=== PATIENT | male | born 1945 | race Caucasian/White ===

== ENCOUNTER 2016-08-20 12:18 | Emergency (ER) | payer OTHER ==
[~2016-08-20] VITALS: Ht 193 cm; Wt 97.5 kg
[2016-08-20 12:30] VITALS: BP 116/45
[2016-08-20] MEDS ORDERED: HYDROmorphone HCL 2 MG/ML VL IM ONE (13:00)
[2016-08-20] MEDS ORDERED: ONDANSETRON HCL 4 MG/2 ML VIAL IM ONE (13:00)
[2016-08-20] MEDS ORDERED: METHOCARBAMOL 500 MG TAB PO ONE (13:00)
== END 2016-08-20 14:39 | disposition home or self-care (01) ==
LOC: ER 12:31
DX: M25.552 Pain in left hip (principal); G89.29 Other chronic pain; E11.9 Type 2 diabetes mellitus without complications; G40.909 Epilepsy, unspecified, not intractable, without status epilepticus; G70.00 Myasthenia gravis without (acute) exacerbation; Z85.51 Personal history of malignant neoplasm of bladder; W01.0XXA Fall on same level from slipping, tripping and stumbling without subsequent striking against object, initial encounter; Z88.0 Allergy status to penicillin; Y93.E1 Activity, personal bathing and showering; Y99.8 Other external cause status; Y92.091 Bathroom in other non-institutional residence as the place of occurrence of the external cause
CPT/HCPCS: 74176; 96372; 99284; J1170; J2405

== ENCOUNTER 2018-03-01 11:00 | Emergency (ER) | payer OTHER ==
[~2018-03-01] VITALS: Ht 193 cm; Wt 97.5 kg
[2018-03-01 11:31] VITALS: BP 128/78
[2018-03-01] MEDS ORDERED: HYDROcodone-ACET 7.5/325MG TAB PO ONE (11:45)
== END 2018-03-01 13:19 | disposition home or self-care (01) ==
LOC: ER 11:00
DX: M16.11 Unilateral primary osteoarthritis, right hip (principal); E11.9 Type 2 diabetes mellitus without complications; Z96.642 Presence of left artificial hip joint; Z90.49 Acquired absence of other specified parts of digestive tract; Z88.0 Allergy status to penicillin
CPT/HCPCS: 73502

== ENCOUNTER 2019-04-02 05:39 | Emergency (ER) | payer OTHER ==
[~2019-04-02] VITALS: Ht 182.9 cm; Wt 90.7 kg
[~2019-04-02 05:39] MED LIST: ESCI20TA51 PO; LAM100T PO; MIRT30TA PO; PYRI30TA PO
[2019-04-02] MEDS ORDERED: SODIUM CHLORIDE 0.9% 1,000 ML IV ONE (07:40)
[2019-04-02] MEDS ORDERED: MORPHINE SULF INJ 2 MG/ML SYRINGE 1ML IV ONE (08:30)
[2019-04-02] MEDS ORDERED: ONDANSETRON HCL 4 MG/2 ML VIAL IV ONE (08:30)
[2019-04-02 08:38] LABS: Basophils # (auto) 0.1 uL; Basophils % (auto) 1.2 % (0.0-2.0); Eosinophils # (auto) 0.2 uL; Eosinophils % (auto) 2.7 % (0.0-7.0); Hematocrit 35.8 % (41.0-53.0); Hemoglobin 12.2 g/dL (13.5-17.5); Lymphocytes # (auto) 1.1 uL; Lymphocytes % (auto) 14.9 % (10.0-50.0); Mean Corpuscular Hemoglobin 27.3 pg (28.0-32.0); Mean Corpuscular Volume 80.3 fL (80.0-100.0); Monocytes # (auto) 0.5 uL; Monocytes % (auto) 6.4 % (0.0-12.0); Neutrophils # (auto) 5.5 uL; Neutrophils % (auto) 74.8 % (37.0-80.0); Nucleated Red Blood Cells % 0.2 %; Platelet Count (auto) 237 10^3/uL (140-450); Red Blood Cells 4.46 10^6/uL (4.5-5.90); Red Cell Distribution Width 14.2 % (11.8-14.3); White Blood Cell 7.3 10^3/uL (4.4-10.8)
[2019-04-02 08:50] LABS: INR < 0.93 (0.9-1.15)
[2019-04-02 08:57] LABS: Calcium 8.9 mg/dL (8.5-10.1); Chloride 109 mmol/L (98-107); Potassium 3.9 mmol/L (3.5-5.1); Sodium 140 mmol/L (136-145)
[2019-04-02 09:05] LABS: Alanine Aminotransferase 13 U/L (16-61); Albumin 3.1 g/dL (3.4-5.0); Alkaline Phosphatase 108 U/L (45-117); Anion Gap 7 (5-15); Aspartate Aminotransferase 12 U/L (15-37); BUN/Creatinine Ratio 16.5; Bilirubin, Total 0.5 mg/dL (0.2-1.0); Blood Urea Nitrogen 17 mg/dL (7-18); Carbon Dioxide 24 mmol/L (21-32); GFR African American 91 mL/min; GFR Non-African American 75 mL/min; Glucose 248 mg/dL (74-106); Total Protein 6.7 g/dL (6.4-8.2)
[2019-04-02 10:00] VITALS: BP 125/59
== END 2019-04-02 12:13 | disposition home or self-care (01) ==
LOC: EDBD 05:39 → ER 05:39
DX: R04.0 Epistaxis (principal); E44.1 Mild protein-calorie malnutrition; I10 Essential (primary) hypertension; E11.9 Type 2 diabetes mellitus without complications; I25.2 Old myocardial infarction; Z68.27 Body mass index [BMI] 27.0-27.9, adult; Z98.61 Coronary angioplasty status
CPT/HCPCS: 30901; 36415; 71045; 80053; 84484; 85025; 85610; 85730; 96374; 96375; 99284; J2270; J2405

== ENCOUNTER 2020-01-05 14:56 | Inpatient (IN) | payer OTHER ==
[~2020-01-05] VITALS: Ht 190.5 cm; Wt 97.0 kg
[2020-01-05 15:42] LABS: Basophils # (auto) 0.1 10 ^3/uL (0-0.2); Eosinophils # (auto) 0.1 10 ^3/uL (0-0.8); Hemoglobin 8.4 g/dL (13.5-17.5); Lymphocytes # (auto) 1.1 10 ^3/uL (0.4-5.4); Mean Corpuscular Hemoglobin 26.5 pg (28.0-32.0); Monocytes # (auto) 0.5 10 ^3/uL (0-1.3); Monocytes % (auto) 9.6 % (0.0-12.0); Red Blood Cells 3.18 10^6/uL (4.5-5.90); White Blood Cell 5.7 10^3/uL (4.4-10.8)
[2020-01-05 15:44] LABS: Basophils % (auto) 1.3 % (0.0-2.0); Eosinophils % (auto) 2.4 % (0.0-7.0); Mean Corpuscular Hgb Conc. 33.7 g/dL (32.0-36.0); Mean Corpuscular Volume 78.6 fL (80.0-100.0); Neutrophils # (auto) 3.9 10 ^3/uL (1.6-8.6); Neutrophils % (auto) 67.7 % (37.0-80.0); Platelet Count (auto) 309 10^3/uL (140-450)
[2020-01-05 15:57] LABS: INR 1.01 (0.9-1.15); Partial Thromboplastin Time 23.8 sec (23.64-32.05)
[2020-01-05 16:02] LABS: Albumin 3.1 g/dL (3.4-5.0); Anion Gap 7 (5-15); Calcium 8.6 mg/dL (8.5-10.1); Carbon Dioxide 22 mmol/L (21-32); Chloride 110 mmol/L (98-107); Glucose 207 mg/dL (74-106); Potassium 3.9 mmol/L (3.5-5.1); Sodium 139 mmol/L (136-145)
[2020-01-05 16:10] LABS: Alanine Aminotransferase 14 U/L (16-61); Alkaline Phosphatase 101 U/L (45-117); Aspartate Aminotransferase 6 U/L (15-37); BUN/Creatinine Ratio 13.8; Bilirubin, Total 0.5 mg/dL (0.2-1.0); Blood Urea Nitrogen 17 mg/dL (7-18); GFR African American 74 mL/min; GFR Non-African American 61 mL/min; Total Protein 6.4 g/dL (6.4-8.2)
[2020-01-05] MEDS ORDERED: DOCUSATE SOD 100 MG CAP PO PRN (18:45)
[2020-01-05] MEDS ORDERED: MORPHINE SULF INJ 2 MG/ML SYRINGE 1ML IV PRN (18:45)
[2020-01-05] MEDS ORDERED: ACETAMINOPHEN 325 MG TAB PO PRN (18:45)
[2020-01-05] MEDS ORDERED: ONDANSETRON HCL 4 MG/2 ML VIAL IV PRN (18:45)
[2020-01-05] MEDS ORDERED: NITROGLYCERIN 0.4 MG SL TAB SL PRN (18:45)
[2020-01-05] MEDS ORDERED: ALBUTEROL SULF 2.5 MG/0.5ML(0.5%) NEB SOLN NEB PRN (19:00)
[2020-01-05] MEDS ORDERED: IPRATROPIUM BROM 0.5 MG/2.5ML INH SOL NEB PRN (19:00)
[2020-01-05] MEDS ORDERED: DEXTROSE (50%) 50ML SYRG IV PRN (19:00)
--- NOTE | 2020-01-05 20:20 | NUR ---
OPENING NOTE RECEIVED PATIENT FROM ER. NO REPORT RECEIVED FROM ER NURSE. ASSUMING ROLE OF CARE OF PATIENT AT THIS TIME. PATIENT SHOWING NO SIGN OF DISTRESS, SHORTNESS OF BREATH, AND PATIENT DENIES ANY PAIN AT THIS TIME. PATIENT EDUCATE ON PLAN OF CARE FOR THE NIGHT AND PATIENT VERBALIZED UNDERSTANDING. BED LOWERED, CALL LIGHT WITHIN REACH, AND PATIENT WILL BE ROUNDED ON EVERY HOUR AND NEEDED.
[2020-01-05] MEDS: InsuLIN REG 1unit/0.01ml Soln (100units/ml) SC SCH (21:39)
[2020-01-05] MEDS: ACCU-CHEK COMFORT CURVE STRIP VI SCH (21:40)
[2020-01-05 22:00] VITALS: BP 120/62
[2020-01-05] MEDS: PYRIDOSTIGMINE BROMIDE 60 MG TAB PO SCH (22:00)
[2020-01-05] MEDS: MIRTAZAPINE 30 MG TAB PO SCH (22:15)
[2020-01-05] MEDS: lamoTRIgine 100 MG TAB PO SCH (22:15)
[2020-01-05 22:19] VITALS: BP 120/62
[2020-01-06 02:47] VITALS: BP 120/62
[2020-01-06 05:00] VITALS: BP 116/61
[2020-01-06 06:04] LABS: Basophils # (auto) 0.1 10 ^3/uL (0-0.2); Eosinophils # (auto) 0.2 10 ^3/uL (0-0.8); Eosinophils % (auto) 4.4 % (0.0-7.0); Lymphocytes # (auto) 1.1 10 ^3/uL (0.4-5.4); Monocytes # (auto) 0.5 10 ^3/uL (0-1.3)
[2020-01-06 06:06] LABS: Basophils % (auto) 1.7 % (0.0-2.0); Lymphocytes % (auto) 23.6 % (10.0-50.0); Mean Corpuscular Hemoglobin 26.7 pg (28.0-32.0); Mean Corpuscular Hgb Conc. 33.4 g/dL (32.0-36.0); Mean Corpuscular Volume 79.9 fL (80.0-100.0); Monocytes % (auto) 10.7 % (0.0-12.0); Neutrophils # (auto) 2.9 10 ^3/uL (1.6-8.6); Neutrophils % (auto) 59.6 % (37.0-80.0); Platelet Count (auto) 281 10^3/uL (140-450); Red Cell Distribution Width 14.3 % (11.8-14.3); White Blood Cell 4.8 10^3/uL (4.4-10.8)
[2020-01-06] MEDS: ACCU-CHEK COMFORT CURVE STRIP VI SCH ×4 (06:12→22:01)
[2020-01-06] MEDS: InsuLIN REG 1unit/0.01ml Soln (100units/ml) SC SCH ×4 (06:14→22:11)
[2020-01-06 06:25] LABS: BUN/Creatinine Ratio 16.5; Calcium 8.4 mg/dL (8.5-10.1); Potassium 3.6 mmol/L (3.5-5.1)
--- NOTE | 2020-01-06 07:10 | NUR ---
OPENING NOTE Assumed care of patient at 0700. Respiratory sounds clear, equal bilaterally and unlabored. Patient verbalized that he is not having any pain at this time. Updated patient on POC. Bed locked in lowest position, side rails up x 2, HOB elevated at least 30 degrees and call light is within reach. Will continue to monitor.
--- NOTE | 2020-01-06 07:45 | NUR ---
GI CONSULT Message left with Dr Flores's office voicemail to notify of GI consult cancelation per Dr Kimberly Vicente.
[2020-01-06 09:00] VITALS: BP 124/62
--- NOTE | 2020-01-06 09:08 | NUR ---
GI Returned call received from Dr. Fabiola Goodwin. Informed GI consult cancelled by Dr. All Vicente, verbalized understanding.
[2020-01-06 09:19] LABS: Urine Bacteria NONE SEEN /hpf (None Seen); Urine Blood 2+ /uL (Negative); Urine Budding Yeast LOADED /hpf (None Seen); Urine Specific Gravity 1.023 (1.001-1.035); Urine WBC 1367 /hpf (0 - 3)
[2020-01-06] MEDS ORDERED: lamoTRIgine 25 MG TAB PO SCH (10:00)
[2020-01-06] MEDS: ESCITALOPRAM 20MG PO SCH (10:00)
[2020-01-06] MEDS: PYRIDOSTIGMINE BROMIDE 60 MG TAB PO SCH ×2 (10:07→22:00)
[2020-01-06] MEDS: lamoTRIgine 100 MG TAB PO SCH ×2 (10:07→22:00)
--- NOTE | 2020-01-06 11:03 | NUR ---
RT NOTE: PRN TX. NOT INDICATED AT THIS TIME. PT. DENIES ANY SOB. PT. HR 78, RR 16, POX 96% R/A. PT. AWARE TO NOTIFY RN IF BREATHING TX. IS NEEDED.
[2020-01-06 13:00] VITALS: BP 118/58
[2020-01-06] MEDS ORDERED: levoFLOXacin 250MG 50 ML IV ONE (16:30)
[2020-01-06 16:49] VITALS: BP 117/59
--- NOTE | 2020-01-06 17:15 | NUR ---
CT Patient taken for CT via wheelchair, no distress noted upon departure.
--- NOTE | 2020-01-06 17:30 | NUR ---
CT Patient returned from CT via wheelchair, no distress noted upon return.
--- NOTE | 2020-01-06 17:44 | NUR ---
CARDIAC CLEARANCE Message left with Dr Izquierdo's exchange requesting Cardiac clearance for surgery tomorrow.
--- NOTE | 2020-01-06 17:45 | NUR ---
UROLOGY Cathleen Salazar at bedside for Urology consult, new orders received and followed through. Patient updated on plan of care, verbalized understanding.
--- NOTE | 2020-01-06 17:51 | NUR ---
RECONCILIATION MEDS Messages left X2 for Myranda Hernandez to verify home medications and dosages. Awaiting return call.
--- NOTE | 2020-01-06 19:12 | NUR ---
Care endorsed to JASON Ponce, night nurse.
[2020-01-06] MEDS ORDERED: CLOP75TA41 PO (19:47)
[2020-01-06] MEDS ORDERED: GLIP5TAB12 PO (19:47)
[2020-01-06] MEDS ORDERED: ATOR80TA PO (19:47)
[2020-01-06] MEDS ORDERED: ASPI81CH43 PO (19:47)
[2020-01-06] MEDS ORDERED: CARV3.1240 PO (19:47)
[2020-01-06] MEDS ORDERED: ASPI81CH59 PO (19:47)
--- NOTE | 2020-01-06 20:00 | NUR ---
Opening Shift Note Assumed care of patient, awake and alert. No S/S of distress/SOB or pain. Instructed on POC and to call for assist PRN, will continue to monitor for changes Q1hr and PRN.
[2020-01-06] MEDS ORDERED: CAR3125T OR (21:18)
[2020-01-06] MEDS ORDERED: ATOR1TAB PO (21:18)
[2020-01-06] MEDS: ATORVASTATIN 20 MG TAB PO SCH (22:00)
[2020-01-06] MEDS: CARVEDILOL 3.125 MG TAB PO SCH (22:00)
[2020-01-06] MEDS: MIRTAZAPINE 30 MG TAB PO SCH (22:00)
--- NOTE | 2020-01-06 23:00 | NUR ---
PATIENT CONTACTED AT THIS NUMBER [id number]. INFORMATION REGARDING PATIENT OBTAINED. MEDICATIONS CURRENTLY TAKEN AND INFORMED THAT MD PAIZ PERFORMED PRIOR CYSTOSCOPY. PER PATIENT, PLAVIX AND ASA HASN'T BEEN TAKEN IN A WEEK. PER MD REZA AND , PATIENT TOOK MEDICATION TWO DAYS AGO.
--- NOTE | 2020-01-06 23:01 | NUR ---
MD Vicente at bedside. to see pt. No new orders at this time. Will continue to monitor.
[2020-01-06 23:21] VITALS: BP 123/67
[2020-01-07 05:00] VITALS: BP 105/67
[2020-01-07] MEDS: ACCU-CHEK COMFORT CURVE STRIP VI SCH ×4 (06:11→22:57)
[2020-01-07] MEDS: InsuLIN REG 1unit/0.01ml Soln (100units/ml) SC SCH ×4 (06:11→22:59)
[2020-01-07 06:34] LABS: Basophils # (auto) 0.1 10 ^3/uL (0-0.2); Eosinophils # (auto) 0.2 10 ^3/uL (0-0.8); Monocytes # (auto) 0.5 10 ^3/uL (0-1.3)
--- NOTE | 2020-01-07 06:35 | NUR ---
PER PATIENT, HE WOULD LIKE HIS CONTACTED FOLLOWING HIS PROCEDURE. WILL ENDORSE TO CLAUS GOMEZ.
[2020-01-07 06:36] LABS: Basophils % (auto) 1.9 % (0.0-2.0); Eosinophils % (auto) 3.4 % (0.0-7.0); Hematocrit 24.3 % (41.0-53.0); Lymphocytes # (auto) 0.9 10 ^3/uL (0.4-5.4); Lymphocytes % (auto) 18.2 % (10.0-50.0); Mean Corpuscular Hemoglobin 26.3 pg (28.0-32.0); Mean Corpuscular Hgb Conc. 32.9 g/dL (32.0-36.0); Monocytes % (auto) 9.3 % (0.0-12.0); Neutrophils # (auto) 3.4 10 ^3/uL (1.6-8.6); Neutrophils % (auto) 67.2 % (37.0-80.0); Platelet Count (auto) 278 10^3/uL (140-450); Red Blood Cells 3.04 10^6/uL (4.5-5.90); Red Cell Distribution Width 14.2 % (11.8-14.3); White Blood Cell 5.1 10^3/uL (4.4-10.8)
[2020-01-07 06:49] LABS: Potassium 4.2 mmol/L (3.5-5.1)
[2020-01-07 07:01] LABS: BUN/Creatinine Ratio 15.7; Calcium 8.3 mg/dL (8.5-10.1)
--- NOTE | 2020-01-07 07:51 | NUR ---
RT NOTE: WENT TO PTS ROOM TO ASSESS FOR PRN BREATHING TX, PT STATED THAT HE WAS BREATHING FINE, NO S/S OF SOB, NO INDICATION FOR TX AT THIS TIME. HR 76, RR 16, SPO2 99% ON RA. WILL CONTINUE TO MONITOR PT.
[2020-01-07 09:00] VITALS: BP 128/65
[2020-01-07] MEDS: ESCITALOPRAM 20MG PO SCH (10:00)
[2020-01-07] MEDS: levoFLOXacin 500MG 100 ML IV SCH (10:03)
[2020-01-07] MEDS: lamoTRIgine 100 MG TAB PO SCH ×2 (10:03→22:56)
[2020-01-07] MEDS: PYRIDOSTIGMINE BROMIDE 60 MG TAB PO SCH ×2 (10:04→22:57)
[2020-01-07 13:00] VITALS: BP 133/82
--- NOTE | 2020-01-07 13:04 | NUR ---
Procedure Postponed The patient's procedure was postponed due to the question of his last dose of Plavix and also needed Cardiac clearance. The patient was not sure when he last had Plavix but it appears he had it the day he came to the hospital 01/05/2020. He also had a bowel movement this morning that had some blood in it. The blood was old looking, dark in color versus bright red blood. A second bowel movement show no blood but he did have dark stools. Dr. Izquierdo was consulted for cardiac clearance. Will continue to monitor.
[2020-01-07 17:00] VITALS: BP 108/53
--- NOTE | 2020-01-07 19:40 | NUR ---
Opening Shift Note Assumed care of patient, awake and alert. No S/S of distress/SOB or pain. Instructed on POC and to call for assist PRN, patient verbalized understanding. Safety precaution in place, call light within reach, will continue to monitor for changes Q1hr and PRN.
[2020-01-07] MEDS: CARVEDILOL 3.125 MG TAB PO SCH (22:56)
[2020-01-07] MEDS: ATORVASTATIN 20 MG TAB PO SCH (22:57)
[2020-01-07] MEDS: MIRTAZAPINE 30 MG TAB PO SCH (22:57)
[2020-01-07 23:46] VITALS: BP 104/52
[2020-01-08] VITALS (10 sets, daily range): BP systolic 100–118; BP diastolic 50–66
[2020-01-08] MEDS: ACCU-CHEK COMFORT CURVE STRIP VI SCH ×4 (06:46→21:10)
[2020-01-08] MEDS: InsuLIN REG 1unit/0.01ml Soln (100units/ml) SC SCH ×4 (06:47→21:12)
[2020-01-08 07:25] LABS: Eosinophils # (auto) 0.2 10 ^3/uL (0-0.8); Hematocrit 22.9 % (41.0-53.0); Hemoglobin 7.6 g/dL (13.5-17.5); Mean Corpuscular Volume 78.7 fL (80.0-100.0); Neutrophils # (auto) 2.5 10 ^3/uL (1.6-8.6); Red Blood Cells 2.91 10^6/uL (4.5-5.90)
[2020-01-08 07:27] LABS: Basophils # (auto) 0 10 ^3/uL (0-0.2); Basophils % (auto) 1.2 % (0.0-2.0); Eosinophils % (auto) 4.4 % (0.0-7.0); Lymphocytes # (auto) 1.1 10 ^3/uL (0.4-5.4); Lymphocytes % (auto) 26.3 % (10.0-50.0); Mean Corpuscular Hemoglobin 26.1 pg (28.0-32.0); Mean Corpuscular Hgb Conc. 33.2 g/dL (32.0-36.0); Monocytes # (auto) 0.4 10 ^3/uL (0-1.3); Monocytes % (auto) 10.2 % (0.0-12.0); Neutrophils % (auto) 57.9 % (37.0-80.0); Platelet Count (auto) 277 10^3/uL (140-450); Red Cell Distribution Width 14.2 % (11.8-14.3); White Blood Cell 4.3 10^3/uL (4.4-10.8)
--- NOTE | 2020-01-08 07:30 | NUR ---
Opening Shift Note Assumed care of patient, awake and alert. No S/S of distress/SOB or pain. Instructed on POC and to call for assist PRN, Call light within reach, bed alarm on, will continue to monitor for changes Q1hr and PRN.
[2020-01-08 07:41] LABS: Calcium 8.2 mg/dL (8.5-10.1); Potassium 3.6 mmol/L (3.5-5.1)
[2020-01-08] MEDS: ESCITALOPRAM 20MG PO SCH (10:00)
--- NOTE | 2020-01-08 10:27 | NUR ---
RT NOTE: WENT TO PTS ROOM TO ASSESS FOR PRN BREATHING TX, PT STATED THAT HE WAS BREATHING FINE, NO S/S OF SOB, NO INDICATION FOR TX AT THIS TIME. HR 93, RR 16, SPO2 96% ON RA. WILL CONTINUE TO MONITOR PT.
[2020-01-08] MEDS: lamoTRIgine 100 MG TAB PO SCH ×2 (10:32→21:09)
[2020-01-08] MEDS: levoFLOXacin 500MG 100 ML IV SCH (10:32)
[2020-01-08] MEDS: PYRIDOSTIGMINE BROMIDE 60 MG TAB PO SCH ×2 (10:33→21:10)
--- NOTE | 2020-01-08 11:50 | NUR ---
Transfusion finished without adverse reaction
--- NOTE | 2020-01-08 12:40 | NUR ---
UROLOGY MICHAEL NAVA) AT BEDSIDE, DISCUSSING POC WITH PT, SHE WAS INFORMED PT URINE DARK TEA COLORED WITH NOTED CLOTS AND HGB 7.6, CONT CARE
--- NOTE | 2020-01-08 15:15 | NUR ---
BED LINEN CHANGE AND CLEAN GOWN PROVIDED, NOTED PT AMBULATING TO BATHROOM, GAIT STEADY, CONT CARE
--- NOTE | 2020-01-08 17:58 | NUR ---
assessment Patient is a 75 year old male who is alert and oriented. Patients cognitive abilities are intact. Prior to admission patient lived home with family and functioned independently. Patient informed me he is able to care for his own ADLs. Per patient he will return home to his prior living arrangements post discharge and family will transport him home. Patient informed me he has a fww, cane, and wheelchair for home use. Patient informed me his PCP is Dr Hernandez. Patient informed me he called 911 due to weakness and chest pain and was admitted. I will continue to monitor and follow up as appropriate. I informed patient he has a right to speak to a manager social services regarding all care. I informed patient he has a right to participate in any and all discharge planning. Patient does not have a POA and advanced directive. I have offered patient information on POA and advanced directives. I informed the patient the advantages and benefits of having an Advanced Directive. Patient verbalized understanding and agreed to discharge plan. Addendum: 01/08/20 at 1800 by Radha MYERS Amended: Links added.
--- NOTE | 2020-01-08 18:06 | NUR ---
PT ASSESSED FOR PRN MED NEB TX. SPO2 99% ON RA, HR 88. PT DENIES ANY RESPIRATORY DISTRESS. NO TX INDICATED AT THIS TIME. PT IS AWARE TO HAVE RT PAGED IF TX NEEDED.
--- NOTE | 2020-01-08 19:00 | NUR ---
Opening note Assumed care. Patient awake, alert and oriented X4, Denies pain or shortness of breath. Patient was able to ambulate to the restroom without assist, steady gate. Patient aware of plan of care, awaiting for Blood product to transfuse. Bed side rails are padded for safety, bed on lowest position, call light with in reach. Instructed patient to use the call light in the instance that he needs assistance. Will continue to monitor.
[2020-01-08] MEDS: ATORVASTATIN 20 MG TAB PO SCH (21:09)
[2020-01-08] MEDS: CARVEDILOL 3.125 MG TAB PO SCH (21:09)
[2020-01-08] MEDS: MIRTAZAPINE 30 MG TAB PO SCH (21:10)
--- NOTE | 2020-01-08 22:43 | NUR ---
Blood transfusion started.
[2020-01-09 00:42] VITALS: BP 114/66
[2020-01-09 01:21] VITALS: BP 116/59
[2020-01-09] MEDS: ACCU-CHEK COMFORT CURVE STRIP VI SCH ×4 (06:31→22:33)
[2020-01-09] MEDS: InsuLIN REG 1unit/0.01ml Soln (100units/ml) SC SCH ×4 (06:32→22:48)
--- NOTE | 2020-01-09 06:46 | NUR ---
Patient awake alert and oriented. No signs of distress, Denies discomfort.
--- NOTE | 2020-01-09 07:50 | NUR ---
Respiratory note: Assessed pt for prn medneb tx. HR 98, RR 20, SPO2 97% on room air. Breath sounds clear t/o. Pt denies SOB, no s/s of distress. Medneb tx not indicated at this time. Advised pt to call for RT if needed.
[2020-01-09 09:00] VITALS: BP 105/55
[2020-01-09] MEDS: levoFLOXacin 500MG 100 ML IV SCH (09:25)
[2020-01-09] MEDS: lamoTRIgine 100 MG TAB PO SCH ×2 (09:25→22:32)
[2020-01-09] MEDS: PYRIDOSTIGMINE BROMIDE 60 MG TAB PO SCH ×2 (09:26→22:32)
[2020-01-09] MEDS: ESCITALOPRAM 20MG PO SCH (09:26)
[2020-01-09 12:20] LABS: Hemoglobin 8.8 g/dL (13.5-17.5)
[2020-01-09 12:22] LABS: Hematocrit 27.4 % (41.0-53.0)
--- NOTE | 2020-01-09 12:30 | NUR ---
Nutrition Assessment Notes please see attached link for complete assessment Est energy needs BW [id number] kcal (25-30kcal/kg), Est protein needs 93-102g (1.0-1.1 g/kg BW). Will reassess prn. Addendum: 01/09/20 at [address] Amended: Links added.
[2020-01-09 13:00] VITALS: BP 114/60
[2020-01-09 17:00] VITALS: BP 119/61
--- NOTE | 2020-01-09 19:01 | NUR ---
Respiratory note: ASSESSED PT FOR PRN MED NEB AT THIS TIME, PT DENIES SOB AT THIS TIME, NO RESP DISTRESS NOTED, NO TX INDICATED, PULSE OX 99% ON RA, HR 83, RR 18, BILATERAL BS CLEAR.
[2020-01-09 22:00] VITALS: BP 117/60
[2020-01-09] MEDS: CARVEDILOL 3.125 MG TAB PO SCH (22:31)
[2020-01-09] MEDS: ATORVASTATIN 20 MG TAB PO SCH (22:32)
[2020-01-09] MEDS: MIRTAZAPINE 30 MG TAB PO SCH (22:33)
[2020-01-10 05:00] VITALS: BP 116/51
[2020-01-10] MEDS: ACCU-CHEK COMFORT CURVE STRIP VI SCH ×4 (06:12→20:56)
[2020-01-10] MEDS: InsuLIN REG 1unit/0.01ml Soln (100units/ml) SC SCH ×4 (06:19→20:57)
[2020-01-10 09:00] VITALS: BP 109/57
[2020-01-10] MEDS: ESCITALOPRAM 20MG PO SCH (10:00)
[2020-01-10] MEDS: PYRIDOSTIGMINE BROMIDE 60 MG TAB PO SCH ×2 (10:19→20:56)
[2020-01-10] MEDS: lamoTRIgine 100 MG TAB PO SCH ×2 (10:19→20:55)
[2020-01-10] MEDS: levoFLOXacin 500MG 100 ML IV SCH (10:19)
[2020-01-10 12:58] VITALS: BP 119/78
[2020-01-10 14:14] LABS: Basophils # (auto) 0.1 10 ^3/uL (0-0.2); Eosinophils # (auto) 0.2 10 ^3/uL (0-0.8); Eosinophils % (auto) 3.7 % (0.0-7.0); Hemoglobin 9.2 g/dL (13.5-17.5); Lymphocytes # (auto) 0.8 10 ^3/uL (0.4-5.4); Monocytes # (auto) 0.5 10 ^3/uL (0-1.3)
[2020-01-10 14:15] LABS: Basophils % (auto) 1.9 % (0.0-2.0); Hematocrit 28.1 % (41.0-53.0); Lymphocytes % (auto) 16.8 % (10.0-50.0); Mean Corpuscular Hemoglobin 26.4 pg (28.0-32.0); Mean Corpuscular Hgb Conc. 32.7 g/dL (32.0-36.0); Mean Corpuscular Volume 80.7 fL (80.0-100.0); Monocytes % (auto) 9.7 % (0.0-12.0); Neutrophils # (auto) 3.4 10 ^3/uL (1.6-8.6); Neutrophils % (auto) 67.9 % (37.0-80.0); Platelet Count (auto) 272 10^3/uL (140-450); Red Blood Cells 3.48 10^6/uL (4.5-5.90); Red Cell Distribution Width 14.7 % (11.8-14.3)
[2020-01-10 14:30] LABS: BUN/Creatinine Ratio 17.5; Calcium 9.2 mg/dL (8.5-10.1); Potassium 4.1 mmol/L (3.5-5.1)
[2020-01-10 17:00] VITALS: BP 114/55
--- NOTE | 2020-01-10 17:54 | NUR ---
Attempted to paged Urologist ,however the electrolog operator of urology can be paged only urgent matter. Will endorse to next shift.
--- NOTE | 2020-01-10 19:00 | NUR ---
Opening Shift Note Assumed care of patient, awake and alert. No S/S of distress/SOB or pain. Instructed on POC and to call for assist PRN, will continue to monitor.
[2020-01-10] MEDS: ATORVASTATIN 20 MG TAB PO SCH (20:55)
[2020-01-10] MEDS: MIRTAZAPINE 30 MG TAB PO SCH (20:56)
[2020-01-10] MEDS: CARVEDILOL 3.125 MG TAB PO SCH (21:12)
[2020-01-10 22:00] VITALS: BP 96/40
--- NOTE | 2020-01-10 22:00 | NUR ---
Patient aware of NPO after midnight. Patient was instructed to call for help if any symptoms of hypoglycemia would appear aletha to NPO status.
[2020-01-11 05:00] VITALS: BP 116/55
[2020-01-11] MEDS: InsuLIN REG 1unit/0.01ml Soln (100units/ml) SC SCH ×4 (06:21→21:56)
[2020-01-11] MEDS: ACCU-CHEK COMFORT CURVE STRIP VI SCH ×4 (06:21→21:56)
[2020-01-11 07:30] LABS: Basophils # (auto) 0.1 10 ^3/uL (0-0.2); Basophils % (auto) 1.7 % (0.0-2.0); Eosinophils # (auto) 0.2 10 ^3/uL (0-0.8); Hematocrit 27.7 % (41.0-53.0); Hemoglobin 8.9 g/dL (13.5-17.5); Lymphocytes # (auto) 1.1 10 ^3/uL (0.4-5.4); Mean Corpuscular Hgb Conc. 32.1 g/dL (32.0-36.0); Monocytes # (auto) 0.5 10 ^3/uL (0-1.3); Neutrophils # (auto) 3.2 10 ^3/uL (1.6-8.6); Red Cell Distribution Width 15.1 % (11.8-14.3); White Blood Cell 5.1 10^3/uL (4.4-10.8)
[2020-01-11 07:32] LABS: Eosinophils % (auto) 4.3 % (0.0-7.0); Lymphocytes % (auto) 21.8 % (10.0-50.0); Mean Corpuscular Hemoglobin 25.7 pg (28.0-32.0); Mean Corpuscular Volume 80.2 fL (80.0-100.0); Monocytes % (auto) 9.9 % (0.0-12.0); Neutrophils % (auto) 62.3 % (37.0-80.0); Nucleated Red Blood Cells % 0.1 %; Platelet Count (auto) 261 10^3/uL (140-450); Red Blood Cells 3.45 10^6/uL (4.5-5.90)
[2020-01-11 07:52] LABS: Calcium 9.1 mg/dL (8.5-10.1); Potassium 4.2 mmol/L (3.5-5.1)
[2020-01-11 07:53] LABS: BUN/Creatinine Ratio 19.3
[2020-01-11 09:00] VITALS: BP 122/66
[2020-01-11] MEDS: ESCITALOPRAM 20MG PO SCH (10:00)
[2020-01-11] MEDS: levoFLOXacin 500MG 100 ML IV SCH (10:36)
[2020-01-11] MEDS: lamoTRIgine 100 MG TAB PO SCH ×2 (10:37→21:59)
[2020-01-11] MEDS: PYRIDOSTIGMINE BROMIDE 60 MG TAB PO SCH ×2 (10:37→21:59)
[2020-01-11 12:43] VITALS: BP 111/69
--- NOTE | 2020-01-11 15:32 | NUR ---
Taken to OR Patient was taken down in bed for TURP.
[2020-01-11] MEDS ORDERED: CIPROFLOXACIN 400MG/200ML 200 ML IV ONE (15:47)
[2020-01-11] MEDS ORDERED: SUCCINYLCHOLINE CHLORIDE 20 MG/ML 10ML VIAL IV ONE (15:48)
[2020-01-11] MEDS ORDERED: IOHEXOL 300 MG/ML 100ML BOTTLE IJ ONE (15:49)
[2020-01-11] MEDS ORDERED: LIDOCAINE 1% HCL (LOCAL ANESTH.) INJ 20ML MDV ONE (15:49)
[2020-01-11] MEDS ORDERED: MIDAZOLAM HCL 1MG/1ML-2 ML VIAL ONE (15:50)
[2020-01-11] MEDS ORDERED: ETOMIDATE (2MG/ML) 20ML VIAL IV ONE (15:52)
[2020-01-11] MEDS ORDERED: ROCURONIUM 10MG/ML 10ML VIAL IV ONE (15:52)
[2020-01-11] MEDS ORDERED: fentaNYL CITRATE 100 MCG/2 ML VL ONE (16:01)
[2020-01-11] MEDS ORDERED: ePHEDrine SULFATE 50 MG/ML AMP ONE (16:08)
[2020-01-11] MEDS ORDERED: STERILE WATER 10 ML ONE (16:08)
[2020-01-11] MEDS ORDERED: ACCU-CHEK COMFORT CURVE STRIP VI ONE (16:15)
[2020-01-11] MEDS ORDERED: NALOXONE HCL 0.4 MG/ML VIAL IV PRN (16:15)
[2020-01-11] MEDS ORDERED: ePHEDrine SULFATE 50 MG/ML AMP IV PRN (16:15)
[2020-01-11] MEDS ORDERED: HYDROmorphone HCL 2 MG/ML VL IV PRN (16:15)
[2020-01-11] MEDS ORDERED: ONDANSETRON HCL 4 MG/2 ML VIAL IV PRN (16:15)
[2020-01-11] MEDS: HYDROmorphone HCL 2 MG/ML VL IV PRN ×2 (17:56→18:14)
--- NOTE | 2020-01-11 20:50 | NUR ---
IV removal IV DC'd with clean sterile technique, catheter fully intact. Pressure dressing applied to site. Patient tolerated well. IV insertion IV access obtained, via clean sterile technique by inserting 20 gauge catheter at right AC after 2 attempts. IV secured properly. No trauma to site. Patient tolerated well.
--- NOTE | 2020-01-11 21:03 | NUR ---
Patient is experiencing N/V, medicated for it.
[2020-01-11] MEDS: ATORVASTATIN 20 MG TAB PO SCH (21:59)
[2020-01-11] MEDS: MIRTAZAPINE 30 MG TAB PO SCH (21:59)
[2020-01-11] MEDS: CARVEDILOL 3.125 MG TAB PO SCH (21:59)
[2020-01-11 22:00] VITALS: BP 131/66
--- NOTE | 2020-01-11 22:00 | NUR ---
Patient refused medication, he is having Nausea and it is Vomiting. He would like to rest. Spoked to Dr Vicente, Dr ward. Also reported hematuria
[2020-01-11 22:45] LABS: Hemoglobin 9.4 g/dL (13.5-17.5)
[2020-01-11 22:47] LABS: Hematocrit 29.2 % (41.0-53.0)
--- NOTE | 2020-01-11 23:16 | NUR ---
Dr Vicente at bedside. Beckman catheter was irrigated, no blood cloths came out, put patient felt better . Also encouraged patient to dink fluids, he has been NPO since MD the night before tonight.
--- NOTE | 2020-01-12 03:02 | NUR ---
Patient woke up in pain, [place] given, irrigated the catheter and a small blood clot was relived. patient was assisted to turn in bed for comfort.
[2020-01-12] MEDS: HYDROcodone-ACET 5/325MG TAB PO PRN ×2 (03:05→12:47)
[2020-01-12 05:00] VITALS: BP 130/64
[2020-01-12] MEDS: ACCU-CHEK COMFORT CURVE STRIP VI SCH ×2 (05:08→12:34)
[2020-01-12] MEDS: InsuLIN REG 1unit/0.01ml Soln (100units/ml) SC SCH ×2 (05:25→12:35)
[2020-01-12 06:55] LABS: Basophils # (auto) 0.1 10 ^3/uL (0-0.2); Eosinophils # (auto) 0.1 10 ^3/uL (0-0.8); Lymphocytes # (auto) 0.5 10 ^3/uL (0.4-5.4); Mean Corpuscular Volume 79.6 fL (80.0-100.0); Monocytes # (auto) 0.5 10 ^3/uL (0-1.3); White Blood Cell 6.8 10^3/uL (4.4-10.8)
[2020-01-12 06:57] LABS: Eosinophils % (auto) 0.9 % (0.0-7.0); Hematocrit 27.1 % (41.0-53.0); Lymphocytes % (auto) 6.8 % (10.0-50.0); Mean Corpuscular Hemoglobin 26.4 pg (28.0-32.0); Mean Corpuscular Hgb Conc. 33.2 g/dL (32.0-36.0); Monocytes % (auto) 7.4 % (0.0-12.0); Neutrophils # (auto) 5.7 10 ^3/uL (1.6-8.6); Neutrophils % (auto) 83.9 % (37.0-80.0); Platelet Count (auto) 243 10^3/uL (140-450); Red Blood Cells 3.41 10^6/uL (4.5-5.90)
[2020-01-12] MEDS: ESCITALOPRAM 20MG PO SCH (07:14)
[2020-01-12 07:15] LABS: Calcium 8.2 mg/dL (8.5-10.1); Potassium 4.3 mmol/L (3.5-5.1)
[2020-01-12 07:19] LABS: BUN/Creatinine Ratio 18.3
[2020-01-12 08:30] VITALS: BP 135/64
[2020-01-12] MEDS: PYRIDOSTIGMINE BROMIDE 60 MG TAB PO SCH (09:47)
[2020-01-12] MEDS: levoFLOXacin 500MG 100 ML IV SCH (09:47)
[2020-01-12] MEDS: lamoTRIgine 100 MG TAB PO SCH (09:47)
--- NOTE | 2020-01-12 11:38 | NUR ---
Paged Dr. Lerma and Dr. Izquierdo regarding anticoagulant waiting for return call regarding clearance for discharge as well as if they want anticoagulant restarted.
[2020-01-12 12:00] VITALS: BP 127/64
--- NOTE | 2020-01-12 12:49 | NUR ---
Dr. Lerma - cleared for DC, Dr. Izquierdo - waiting Dr. Lerma cleared patient for DC. He said the patient cannot start an anticoagulant until his urine is no longer pink, when it becomes yellow. Urine is currently pink with sediment. Waiting to hear from Dr. Izquierdo regarding clearance for DC and anticoagulant use.
--- NOTE | 2020-01-12 14:44 | NUR ---
Dr. Gutierrez - Re:Starting anticoagulant Per Dr. Gutierrez, he feels the patient should be on ASA 81 mg due to NSTEMI and stent placement. He said to call Dr. Lerma back regarding this. This nurse called Dr. Lerma back who said he can't agree with starting an anticoagulant until the urine is running yellow. If the ASA is restarted and the patient starts bleeding again, the ASA will just have to be stopped. He said for the doctor to do whatever they feel, but this is his opinion.
--- NOTE | 2020-01-12 14:46 | NUR ---
Clarification: Cardio/Uro - D/C & anticoagulant use Patient is cleared by Cardiology and Urology for discharge. Cardiology believes the patient should be on ASA 81 mg due to previous STEMI and stent placement last year. Urology believes that due to the patient's urine currently (at time of writing this) being mostly yellow with pink tinge, the ASA should not be started right now due to risk of bleeding. It can be started once urine is yellow, no sign of bleeding.
--- NOTE | 2020-01-12 15:14 | NUR ---
Dr. Lerma - anticoag/Lovenox Dr. Lerma said he did not want the patient to take ASA but that he could take Lovenox due to a lower risk of bleeding. Notified Dr. Kimberly Vicente.
--- NOTE | 2020-01-12 16:15 | NUR ---
Dr. Kimberly Vicente - spoke with pt. MD spoke with patient regarding use of ASA due to PR with stents last year. He advised the patient of all risks associated with taking the aspirin and the risks of not taking it. The patient decided to take the ASA and acknowledged that he would stop taking it and see medical advice if there were any signs of bleeding, including but not limited to pink or red urine in box catheter. Patient will be receiving [facility] to assist with Box care at home. Patient verbalized understanding to all information provided by this nurse and the doctor.
--- NOTE | 2020-01-12 16:26 | NUR ---
D/C planning Regarding social service consult for home health for box care. Faxed clinical information to [facility] and [facility] medical [facility] requesting authorization. Per Izzy with [facility] patient has been accepted and will be seen within 24-48hrs upon d.c day. JASON Gonzalez was informed.
[2020-01-12 17:22] VITALS: BP 119/59
--- NOTE | 2020-01-12 17:44 | NUR ---
Discharge Went over discharge paperwork with patient. Removed IV intact, no problems. Removed Telemetry and sent box to ICU per hospital protocol. Went over doctor's appointments. Changed Beckman to leg bag per patient request. Patient will have home health on D/C through [facility]. Beckman left in, patient advised to follow up with Dr. Lerma in one week. Also advised not to take ASA if any bleeding or pink/red urine is noted. Removed ID bands. Got [employer] voucher for patient because he said it was too late for his ride to come get him. Will call taxi once patient is dressed and ready to leave.
--- NOTE | 2020-01-12 19:00 | NUR ---
PATIENT LEFT PATIENT WAS TAKEN OUT IN WHEELCHAIR WITH ALL PERSONAL BELONGINGS WHERE [employer]AXI WAS WAITING. [employer] VOUCHER USED.
== END 2020-01-12 19:02 | disposition home health service (06) | DRG 657 ==
LOC: EDUNIT# 14:56 → ER 14:56 → EDBD 14:56 → TELE 14:57 → TELE-CENTR 20:24
PROVIDERS: ADMIT Internal Medicine; ATTEND Internal Medicine
PROC: 30233N1 Transfusion of Nonautologous Red Blood Cells into Peripheral Vein, Percutaneous Approach (ICD-10-PCS; principal; 2020-01-08)
PROC: 0T768DZ Dilation of Right Ureter with Intraluminal Device, Via Natural or Artificial Opening Endoscopic (ICD-10-PCS; 2020-01-11)
PROC: 0TBB8ZZ Excision of Bladder, Via Natural or Artificial Opening Endoscopic (ICD-10-PCS; 2020-01-11)
PROC: 0TF3XZZ Fragmentation in Right Kidney Pelvis, External Approach (ICD-10-PCS; 2020-01-11 15:47)
DX: C67.9 Malignant neoplasm of bladder, unspecified (principal); N39.0 Urinary tract infection, site not specified; J98.11 Atelectasis; K92.0 Hematemesis; D62 Acute posthemorrhagic anemia; G70.00 Myasthenia gravis without (acute) exacerbation; G40.909 Epilepsy, unspecified, not intractable, without status epilepticus; N20.0 Calculus of kidney; F32.9 Major depressive disorder, single episode, unspecified; E11.9 Type 2 diabetes mellitus without complications; I11.0 Hypertensive heart disease with heart failure; I25.2 Old myocardial infarction; I25.119 Atherosclerotic heart disease of native coronary artery with unspecified angina pectoris; I50.9 Heart failure, unspecified; R31.0 Gross hematuria; K40.90 Unilateral inguinal hernia, without obstruction or gangrene, not specified as recurrent; K42.9 Umbilical hernia without obstruction or gangrene; Z79.02 Long term (current) use of antithrombotics/antiplatelets; Z79.82 Long term (current) use of aspirin; Z85.51 Personal history of malignant neoplasm of bladder; Z87.891 Personal history of nicotine dependence; Z91.19 Patient's noncompliance with other medical treatment and regimen; Z96.642 Presence of left artificial hip joint; Z98.61 Coronary angioplasty status; Z88.0 Allergy status to penicillin; Z88.8 Allergy status to other drugs, medicaments and biological substances; Z80.9 Family history of malignant neoplasm, unspecified; Z90.49 Acquired absence of other specified parts of digestive tract
CPT/HCPCS: 36415; 71045; 74018; 74176; 80048; 80053; 81001; 82962; 83036; 83880; 84484; 85014; 85018; 85025; 85610; 85730; 86850; 86900; 86901; 86920; 93005; 99291; G0378; J0330; J1815; J1956; J2001; J2250; J2405